=== PATIENT | female | born 1960 | race Caucasian/White ===

== ENCOUNTER 2019-02-07 13:53 | Outpatient (CLI) | payer OTHER ==
[2019-02-07 15:09] LABS: eGFR (Non-African) > 60
[2019-02-07 15:50] LABS: SEGMENTED NEUTROPHILS % 66 % (39-79)
== END 2019-02-07 13:58 ==
LOC: LAB 13:53
PROVIDERS: ATTEND Family Medicine
DX: L65.9 Nonscarring hair loss, unspecified (principal); R53.83 Other fatigue
CPT/HCPCS: 36415; 80053; 84443; 85025